=== PATIENT | female | born 1985 | race Caucasian/White ===

== ENCOUNTER → 2016-08-23 | Outpatient (CLI) | payer OTHER ==
[~2016-08-23] MED LIST: BACTROBAN N1 GM/TUBE NOSE; NORCO 5-325 TA1 EACH PO; OCEAN NASAL) (A44 ML NOSE
== END | disposition disaster alternative care site (69) ==
LOC: GRAD 07-20 09:30
DX: E05.90 Thyrotoxicosis, unspecified without thyrotoxic crisis or storm (principal); R94.6 Abnormal results of thyroid function studies; R93.8 Abnormal findings on diagnostic imaging of other specified body structures
CPT/HCPCS: A9516

== ENCOUNTER → 2016-09-05 | Outpatient (CLI) | payer OTHER | LOC: LGSMG 11:58 | DX: R30.0 Dysuria (principal) ==